=== PATIENT | male | born 1970 | race Two or more races ===

== ENCOUNTER 2024-02-17 10:36 | Emergency (ER) | payer OTHER, MEDICAID ==
[~2024-02-17] VITALS: Ht 188 cm; Wt 80.0 kg
[2024-02-17 10:37] VITALS: O2SAT 97
[2024-02-17] MEDS: LEVETIRACETAM 1000MG PREMIX 100 ML IV ONE (11:24)
[2024-02-17 11:38] LABS: BASOPHILS % 0.7 % (0.0-2.0); DIFFERENTIAL COMMENT 0; EOSINOPHILS % 1.8 % (0.0-5.0); HEMATOCRIT. 34.9 % (42.0-52.0); HEMOGLOBIN. 11.3 g/dL (14.0-18.0); LYMPHOCYTES % 34.1 % (20.0-50.0); MEAN CORPUSCULAR HEMOGLOBIN 25.6 pg (28.0-32.0); MEAN CORPUSCULAR HGB CONC 32.2 g/dL (31.0-37.0); MEAN CORPUSCULAR VOLUME 79.6 fL (80.0-94.0); MEAN PLATELET VOLUME 7.5 fl (7.4-10.4); MONOCYTES % 10.1 % (2.0-8.0); NEUTROPHILS % 53.3 % (40.0-76.0); PLATELET 314 x1000/uL (130-400); RED BLOOD CELL COUNT 4.39 mill/uL (4.7-6.1); RED CELL DISTRIBUTION WIDTH 16.2 % (11.6-14.6); WHITE BLOOD COUNT 9.2 x1000/uL (4.5-11.0)
[2024-02-17 11:45] LABS: CHLORIDE 106 mEq/L (98-107); POTASSIUM 3.5 mEq/L (3.5-5.1); SODIUM 137 mEq/L (136-145)
[2024-02-17 11:46] LABS: CALCIUM 8.9 mg/dL (8.7-10.4); CARBON DIOXIDE 25 mEq/L (21-32)
[2024-02-17 11:51] LABS: GLUCOSE 96 mg/dL (70-105); UREA NITROGEN BLOOD 21 mg/dL (9-23)
[2024-02-17 12:23] LABS: ETHANOL BLOOD < 10 mg/dL (<10)
[2024-02-17 13:13] VITALS: BP 149/100; PULSE 98; RESP 16; TEMP 98.2
== END 2024-02-17 13:15 | disposition home or self-care (01) ==
LOC: ER 10:36
DX: R56.9 Unspecified convulsions (principal)
CPT/HCPCS: 80048; 80320; 85025; 36415; 96365; 99284; J1953; G0480